=== PATIENT | female | born 1970 | race Caucasian/White ===

== ENCOUNTER 2021-05-17 14:44 | Emergency (ER) | payer OTHER ==
[~2021-05-17] VITALS: Ht 162.6 cm; Wt 81.6 kg
--- NOTE | 2021-05-17 14:58 | NUR ---
BIB [facility] FROM HOME,C/O BACK PAIN,H/O GLF 2 WEEKS AGO. RATES PAIN 03/07. WILL CONTINUE TO MONITOR THE PATIENT.
[2021-05-17] MEDS ORDERED: oxyCODONE/APAP (5/325 MG) 1 UDTAB TABLET ONE (15:30)
[2021-05-17] MEDS ORDERED: oxyCODONE/APAP (5/325 MG) 1 UDTAB TABLET PO ONE (15:30)
--- NOTE | 2021-05-17 15:52 | NUR ---
X-RAY TECH AT THE BEDSIDE
--- NOTE | 2021-05-17 17:19 | NUR ---
CALLED [facility] FOR TRANSPORT TO [facility]. ETA 60-75 MINUTES.
--- NOTE | 2021-05-17 18:17 | NUR ---
Patient discharged in stable condition. Written and verbal after care instructions given. Patient verbalizes understanding of instruction. The patient got picked up via arranged transpo.
[2021-05-17 18:21] VITALS: BP 126/76
== END 2021-05-17 18:21 | disposition home or self-care (01) ==
LOC: ER 14:50
DX: M54.50 Low back pain, unspecified (principal); G89.29 Other chronic pain